=== PATIENT | male | born 1975 | race Caucasian/White ===

== ENCOUNTER 2016-11-17 09:15 | Emergency (ER) | payer BC ==
[2016-11-17 09:27] VITALS: BP 174/119
--- NOTE | 2016-11-17 10:35 | UC ---
Eye Complaint HPI - HPI Summary HPI Summary: 41 male presents to ED with complaints of redness, swelling and some discharge of right upper lid and lower left lid that began ~2-3 days ago. Left lower lid beginning upon waking up this morning. Patient states he has had these in the past, and it runs in his family. He believes it is a clogged tear duct. Patient has just began to apply warm compresses and states it did significantly help with the right one, in decreasing size. Patient admits to some purulent discharge of right eye lid and tender left lower lid. Denies fever/chills, blurred vision or loss of vision. No other complaints. PMHx include HTN that he currently is following up with his PCP for and in the beginning stages of treatment. No foreign body sensation or photophobia. - History of Current Complaint Chief Complaint: UCEye Stated Complaint: EYE COMPLAINT Time Seen by Provider: 11/17/16 10:17 Hx Obtained From: Patient Onset/Duration: Sudden Onset, Lasting Days, Still Present, Worse Since Timing: Days Severity Initially: Mild Severity Currently: Mild Pain Intensity: 1 Pain Scale Used: 0-10 Numeric Location of Injury: Eye Lid (lower), Eye Lid (upper) - right Aggravating Factor(s): Nothing, Other - touch of left lower lid Alleviating Factor(s): Other - warm compresses Associated Signs And Symptoms: Positive: Drainage (Purulent) - once or twice, Swelling - Allergies/Home Medications Allergies/Adverse Reactions: Allergies Allergy/AdvReac Type Severity Reaction Status Date / Time No Known Allergies Allergy Verified 11/17/16 09:23 Home Medications: Home Medications Acetaminophen [Acetaminophen Extra Stren] 500 mg PO Q6H PRN 11/17/16 [History Confirmed 11/17/16] Hydrochlorothiazide TAB* [Hydrodiuril TAB*] 25 mg PO DAILY 11/17/16 [History Confirmed 11/17/16] Nicotine Polacrilex [Nicorette] 2 mg MT SEE INSTRUCTIONS PRN 11/17/16 [History Confirmed 11/17/16] PMH/Surg Hx/FS Hx/Imm Hx Cardiovascular History: Hypertension - Surgical History Surgical History: None - Family History Known Family History: Positive: Cardiac Disease, Hypertension - Social History Alcohol Use: Daily Alcohol Amount: 1-2 nightly Substance Use Type: None Smoking Status (MU): Former Smoker - Immunization History Most Recent Influenza Vaccination: Not the 2016/2017 Season Most Recent Tetanus Shot: 08/14/15 Review of Systems Constitutional: Negative Eyes: Drainage, Eye Redness, Other - swelling ENT: Negative Respiratory: Negative Cardiovascular: Negative Neurological: Negative All Other Systems Reviewed And Are Negative: Yes Physical Exam Triage Information Reviewed: Yes Appearance: Well-Appearing, No Pain Distress, Well-Nourished Vital Signs: Initial Vital Signs Temp 98.2 F 11/17/16 09:22 Pulse 89 11/17/16 09:22 Resp 16 11/17/16 09:22 BP 174/119 11/17/16 09:22 Pulse Ox 99 11/17/16 09:22 Vital Signs Reviewed: Yes Eyes: Positive: Conjunctiva Inflamed, Other: - edematous right upper eye lid, and lower left lid. tender on left lower lid no evident discharge currently, nodule felt, appears to be hordeolum/chalazion. no surrounding periorbital cellulitis ENT: Positive: Normal ENT inspection, Hearing grossly normal, Pharynx normal, TMs normal Neck: Positive: Supple, Nontender, No Lymphadenopathy Respiratory: Positive: Chest non-tender, Lungs clear, Normal breath sounds, No respiratory distress, No accessory muscle use. Negative: Rhonchi, Stridor, Wheezing Cardiovascular: Positive: RRR, No Murmur, Pulses Normal Neurological: Positive: Alert, Muscle Tone Normal Psychological Exam: Normal Skin Exam: Normal Eye Complaint Course/Dx - Course Course Of Treatment: appears to be suffering from stye based on PE findings and HPI. warm compresses, antibiotic ointment to prevent/treat infection. do not wear contacts. follow up pcp. if does not improve or worsens follow up opthamologist. aware of worsening signs and symptoms to watch out for. no concern for fb or abrasion therefore no fluroscein stain done, problems with eye lids. - Differential Dx/Diagnosis Differential Diagnosis/HQI/PQRI: Conjunctivitis, Uveitis, Other - hordeolum, chalazion Provider Diagnoses: hordeolum right upper eye, left lower lid Discharge - Discharge Plan Condition: Stable Disposition: HOME Prescriptions: Erythromycin OPTH OINT* [Erythromycin 0.5% OPTH OINT*] 1 applic BOTH EYES TID # 1 ophth.oint Patient Education Materials: Stye (ED) Referrals: Non Staff,Doctor [Primary Care Provider] - Additional Instructions: continue applying warm compresses as frequently as possible. gently massage area to help promote flow of tear duct. try to wear glasses rather than contacts. use antibiotic ointment to prevent/treat infection. follow up with PCP to re-check known high blood pressure and to ensure improvement of stye. if no improvement of stye in 4-6 weeks or worsening condition of stye recommend follow up with sales/marketing.
== END 2016-11-17 10:45 | disposition home or self-care (01) ==
LOC: UCCORT 09:15
DX: I10 Essential (primary) hypertension (principal); H00.011 Hordeolum externum right upper eyelid; H00.015 Hordeolum externum left lower eyelid
CPT/HCPCS: 99212; G0463